=== PATIENT | female | born 1970 ===

== ENCOUNTER → 2018-05-01 21:35 | Outpatient (REF) | payer OTHER, SELFPAY ==
[2018-05-01 22:01] LABS: Add Manual Diff / Slide Review NO; Basophils Percent Auto 0.9 % (0-2); Eosinophils Percent Auto 3.7 % (2-4); Hemoglobin 13.2 g/dL (12.0-16.0); Lymphocytes Percent Auto 34.6 % (25-40); Mean Corpuscular HGB Conc 33.1 % (30-36); Mean Corpuscular Volume 87.5 fL (80-100); Monocytes Percent Auto 9.2 % (3-14); Neutrophils Absolute Auto 2100 /uL (3000-5900); Neutrophils Percent Auto 51.6 % (50-75); Platelet Count 337 X10^3/uL (150-400); Red Blood Cell Count 4.57 X10^6/uL (4.0-5.2); Red Cell Distribution Width 12.7 % (11.6-14.8)
[2018-05-02 01:03] LABS: Free T3, Triiodothyronine Free 4.03 pg/mL (2.77-5.27)
[2018-05-02 02:08] LABS: Thyroid Stimulating Hormone 1.14 uIU/mL (0.47-4.68)
[2018-05-03 18:09] LABS: Progesterone < 0.5 ng/mL
[2018-05-03 19:09] LABS: Sex Hormone Binding Globulin 118 nmol/L (17-124)
[2018-05-05 19:35] LABS: Testosterone Total 36 ng/dL (2-45)
[2018-05-07 13:37] LABS: Triiodothyronine T3 Reverse 15 ng/dL (8-25)
== END ==
LOC: LAB 21:35
PROVIDERS: Visit Provider Naturopath
DX: E34.9 Endocrine disorder, unspecified (principal); R53.82 Chronic fatigue, unspecified
CPT/HCPCS: 36415; 80053; 82465; 82672; 83718; 84144; 84270; 84402; 84403; 84439; 84443; 84478; 84481; 84482; 85025

== ENCOUNTER → 2018-05-15 21:27 | Outpatient (REF) | payer OTHER, SELFPAY ==
[2018-05-17 15:41] LABS: Progesterone 21.1 ng/mL
== END ==
LOC: LAB 21:27
PROVIDERS: Visit Provider Naturopath
DX: R79.89 Other specified abnormal findings of blood chemistry (principal)
CPT/HCPCS: 36415; 84144